=== PATIENT | female | born 1950 | race Caucasian/White ===

== ENCOUNTER → 2018-01-09 | Outpatient (CLI) | payer MEDICARE, MEDICAID | END | disposition home or self-care (01) | LOC: CFH 06:47 | PROVIDERS: ATTEND Internal Medicine Cardiovascular Disease | DX: Z01.810 Encounter for preprocedural cardiovascular examination (principal); I35.8 Other nonrheumatic aortic valve disorders; I10 Essential (primary) hypertension; Z87.891 Personal history of nicotine dependence | CPT/HCPCS: 93306 ==

== ENCOUNTER → 2018-01-23 | Outpatient (CLI) | payer MEDICARE, MEDICAID ==
[~2018-01-23] MED LIST: REGADENOSON 0.4 MG/5 ML SYRINGE ONE
== END | disposition home or self-care (01) ==
LOC: CFH 07:06
PROVIDERS: ATTEND Internal Medicine Cardiovascular Disease
DX: Z01.810 Encounter for preprocedural cardiovascular examination (principal); I10 Essential (primary) hypertension; R06.02 Shortness of breath
CPT/HCPCS: 78452; 93017; A9502; J2785

== ENCOUNTER 2018-04-17 13:10 | Outpatient (CLI) | payer OTHER, MEDICAID ==
[2018-04-17 14:43] LABS: BASOPHILS # (AUTO) 0.06 x10^3/uL (0-0.1); BASOPHILS % (AUTO) 1 % (0-1); EOSINOPHILS # (AUTO) 0.19 x10^3/uL (0-0.4); EOSINOPHILS % (AUTO) 2 % (1-7); LYMPHOCYTES # (AUTO) 3.23 x10^3/uL (1-3.4); LYMPHOCYTES % (AUTO) 33 % (22-44); MD NO; MEAN CORPUSCULAR HEMOGLOBIN 24.2 pg (27.0-34.8); MEAN CORPUSCULAR HGB CONC 31.2 g/dL (32.4-35.8); MEAN CORPUSCULAR VOLUME 77.6 fL (80-100); MEAN PLATELET VOLUME 8.8 fL (7.4-10.4); MONOCYTES # (AUTO) 0.87 x10^3/uL (0.2-0.8); MONOCYTES % (AUTO) 9 % (2-9); NEUTROPHILS # (AUTO) 5.46 x10^3/uL (1.8-6.8); NEUTROPHILS % (AUTO) 56 % (42-75); PLATELET COUNT 452 x10^3/uL (130-400); RED BLOOD COUNT 4.79 x10^6/uL (3.82-5.3); RED CELL DISTRIBUTION WIDTH 17.9 % (9.6-15.2)
[2018-04-17 14:53] LABS: ALANINE AMINOTRANSFERASE 18 U/L (12-78); ALBUMIN 3.9 g/dL (3.4-5.0); ANION GAP 7 mmol/L (5-15); CALCIUM 9.2 mg/dL (8.5-10.1); CHLORIDE 105 mmol/L (98-107); CREATININE 0.79 mg/dL (0.55-1.02)
[2018-04-17 14:55] LABS: ALKALINE PHOSPHATASE 96 U/L (45-117); BILIRUBIN,TOTAL 0.3 mg/dL (0.2-1.0); TOTAL PROTEIN 7.4 g/dL (6.4-8.2)
[2018-04-17] MEDS ORDERED: OXYB5TAB7 PO (15:07)
[2018-04-17] MEDS ORDERED: FLUT1AER INH (15:07)
[2018-04-17] MEDS ORDERED: ALEN70TA6 PO (15:07)
[2018-04-17] MEDS ORDERED: FURO20TA3 PO (15:07)
[2018-04-17] MEDS ORDERED: LOVA20TA2 PO (15:07)
[2018-04-17] MEDS ORDERED: BENZ-17 PO (15:07)
[2018-04-17] MEDS ORDERED: TRAZ-137 PO (15:07)
[2018-04-17] MEDS ORDERED: VARE1TAB21 PO (15:07)
[2018-04-17] MEDS ORDERED: BACL-19 PO (15:07)
[2018-04-17] MEDS ORDERED: NAPR-685 PO (15:07)
[2018-04-17] MEDS ORDERED: PARO10TA3 PO (15:07)
[2018-04-17] MEDS ORDERED: LISI-167 PO (15:07)
[2018-04-17] MEDS ORDERED: OMEP40CA6 PO (15:07)
[2018-04-17] MEDS ORDERED: AMLO10TA8 PO (15:07)
[2018-04-17 15:26] LABS: PROTHROMBIN TIME 10.6 Seconds (9.6-11.5)
== END 2018-04-17 23:59 | disposition home or self-care (01) ==
LOC: STAR 13:10 → MERGE 13:30 → STAR 23:59
PROVIDERS: ATTEND Orthopaedic Surgery
DX: Z01.818 Encounter for other preprocedural examination (principal); M16.11 Unilateral primary osteoarthritis, right hip
CPT/HCPCS: 36415; 80053; 83036; 85025; 85610; 85730; 87081; 93005

== ENCOUNTER 2018-05-01 19:22 | Inpatient (IN) | payer OTHER, MEDICAID ==
[~2018-05-01] VITALS: Ht 157.5 cm; Wt 78.2 kg
[~2018-05-01 19:22] MED LIST changes: +ALEN70TA6 PO; +AMLO10TA8 PO; +BACL-19 PO; +BENZ-17 PO; +FLUT1AER INH; +FURO20TA3 PO; +LISI-167 PO; +LOVA20TA2 PO; +MELO7.5T31 PO; +NAPR-685 PO; +OMEP40CA6 PO; +OXYB5TAB7 PO; +OXYC5CAP2 PO; +PARO10TA3 PO; -REGADENOSON 0.4 MG/5 ML SYRINGE ONE; +TRAM50TA2 PO; +TRAZ-137 PO; +VARE1TAB21 PO
[2018-05-01] MEDS ORDERED: ALEN70TA6 PO (19:59)
[2018-05-01] MEDS ORDERED: SODIUM CHLORIDE FLUSH 10ML SYR IVF ONE (20:00)
--- NOTE | 2018-05-01 20:14 | NUR ---
PT ON MONITOR AND DAUGHTER AT BEDSIDE PT REPORTS FEELING BETTER AND AWAITNG TEST RESULTS.
--- NOTE | 2018-05-01 20:34 | NUR ---
PT GIVEN WARM BLANKETS AND POSITIONED FOR COMFORT.
[2018-05-01 20:51] LABS: BASOPHILS # (AUTO) 0.07 x10^3/uL (0-0.1); BASOPHILS % (AUTO) 1 % (0-1); EOSINOPHILS # (AUTO) 0.06 x10^3/uL (0-0.4); EOSINOPHILS % (AUTO) 1 % (1-7); LYMPHOCYTES # (AUTO) 2.28 x10^3/uL (1-3.4); LYMPHOCYTES % (AUTO) 19 % (22-44); MD NO; MEAN CORPUSCULAR HEMOGLOBIN 24.6 pg (27.0-34.8); MEAN CORPUSCULAR VOLUME 76.7 fL (80-100); MEAN PLATELET VOLUME 8.6 fL (7.4-10.4); MONOCYTES # (AUTO) 0.81 x10^3/uL (0.2-0.8); MONOCYTES % (AUTO) 7 % (2-9); NEUTROPHILS # (AUTO) 8.55 x10^3/uL (1.8-6.8); NEUTROPHILS % (AUTO) 73 % (42-75); PLATELET COUNT 323 x10^3/uL (130-400); RED BLOOD COUNT 3.57 x10^6/uL (3.82-5.3)
--- NOTE | 2018-05-01 20:55 | NUR ---
CT PENDING LAB/CREATINE.
[2018-05-01 20:56] LABS: ALBUMIN 2.9 g/dL (3.4-5.0); ANION GAP 8 mmol/L (5-15); CALCIUM 8.8 mg/dL (8.5-10.1); CHLORIDE 103 mmol/L (98-107)
[2018-05-01 21:02] LABS: ALANINE AMINOTRANSFERASE 28 U/L (12-78); ALKALINE PHOSPHATASE 75 U/L (45-117); BILIRUBIN,TOTAL 0.4 mg/dL (0.2-1.0); TOTAL PROTEIN 6.8 g/dL (6.4-8.2); TROPONIN I < 0.015 ng/mL (0.000-0.045)
[2018-05-01 21:04] LABS: INTERNATIONAL NORMALIZED RATIO 0.92 (0.93-1.1); PROTHROMBIN TIME 9.7 Seconds (9.6-11.5)
--- NOTE | 2018-05-01 21:46 | NUR ---
PT TO CTA AND AWAITING RESULTS. PT RESTING IN BED ON MONITOR IN NO DISTRESS PRIOR TO SCAN.
--- NOTE | 2018-05-01 21:53 | NUR ---
REPORT FROM ED GRAHAM
[2018-05-01] MEDS ORDERED: OMNIPAQUE 350 MG/ML, 100ML BOTTLE ONE (21:56)
--- NOTE | 2018-05-01 22:04 | NUR ---
PT SITTING UP IN [facility]S NOTED. SPO2 LOW 90'S ON 4L BY NC. RR WNL; PT SPEAKING IN FULL SENTENCES; ALERT/AWAKE. PT/DAUGHTER UPDATED TO POC (RESULTS/DISPO) AND DEMONSTRATES UNDERSTANDING. BP/SPO2/ECG MONITORING IN PLACE. NSR ON MONITOR.
[2018-05-01 22:38] LABS: % IRON SATURATION 3 % (20-55); IRON LEVEL 13 mcg/dL (50-170); TOTAL IRON BINDING CAPACITY 375 mcg/dL (250-450)
--- NOTE | 2018-05-01 22:53 | NUR ---
REPORT TO ED MORRIS.
[2018-05-01] MEDS ORDERED: BISACODYL 10 MG SUPP PR PRN (23:30)
[2018-05-01] MEDS ORDERED: ONDANSETRON ODT 4 MG PO PRN (23:30)
[2018-05-01] MEDS ORDERED: POLYETHYLENE GLYCOL 17 GM PACKET PO PRN (23:30)
[2018-05-02] MEDS: NICOTINE 14MG/24 HR PATCH.TD24 TD SCH ×2 (00:20→23:36)
[2018-05-02] MEDS: HEPARIN 5,000 UNITS/ML, 1ML SQ SCH ×4 (00:20→22:45)
[2018-05-02] MEDS: LOVASTATIN 20 MG TABLET PO SCH ×2 (00:20→20:19)
[2018-05-02] MEDS: BENZONATATE 100 MG CAPSULE PO SCH ×4 (00:20→20:19)
[2018-05-02] MEDS: SODIUM CHLORIDE 0.9% 1,000 ML IV SCH ×2 (00:20→12:43)
[2018-05-02 00:44] VITALS: BP 124/65
[2018-05-02 00:45] LABS: MICROSCOPIC NOT IND
[2018-05-02 00:48] LABS: CULTURE INDICATED? NO
[2018-05-02 01:33] VITALS: BP 110/70
[2018-05-02] MEDS: VARENICLINE 1MG TABLET PO SCH ×3 (01:40→20:19)
[2018-05-02 05:41] LABS: BASOPHILS # (AUTO) 0.03 x10^3/uL (0-0.1); BASOPHILS % (AUTO) 0 % (0-1); EOSINOPHILS # (AUTO) 0.14 x10^3/uL (0-0.4); EOSINOPHILS % (AUTO) 1 % (1-7); LYMPHOCYTES # (AUTO) 2.98 x10^3/uL (1-3.4); LYMPHOCYTES % (AUTO) 29 % (22-44); MD NO; MEAN CORPUSCULAR HGB CONC 33.2 g/dL (32.4-35.8); MEAN CORPUSCULAR VOLUME 75.5 fL (80-100); MEAN PLATELET VOLUME 8.9 fL (7.4-10.4); MONOCYTES # (AUTO) 0.93 x10^3/uL (0.2-0.8); MONOCYTES % (AUTO) 9 % (2-9); NEUTROPHILS # (AUTO) 6.36 x10^3/uL (1.8-6.8); NEUTROPHILS % (AUTO) 61 % (42-75); PLATELET COUNT 306 x10^3/uL (130-400); RED BLOOD COUNT 3.36 x10^6/uL (3.82-5.3); RED CELL DISTRIBUTION WIDTH 18.1 % (9.6-15.2)
[2018-05-02 05:56] LABS: CHLORIDE 103 mmol/L (98-107)
[2018-05-02 06:04] LABS: ALANINE AMINOTRANSFERASE 29 U/L (12-78); ALBUMIN 2.6 g/dL (3.4-5.0); ALKALINE PHOSPHATASE 72 U/L (45-117); ANION GAP 7 mmol/L (5-15); BILIRUBIN,TOTAL 0.5 mg/dL (0.2-1.0); CALCIUM 8.3 mg/dL (8.5-10.1); CREATININE 0.57 mg/dL (0.55-1.02); TOTAL PROTEIN 6.3 g/dL (6.4-8.2)
[2018-05-02 07:27] VITALS: BP 114/68
[2018-05-02] MEDS: ACETAMINOPHEN 500 MG TABLET PO PRN ×2 (07:53→23:35)
[2018-05-02] MEDS: SENNA/DOCUSATE TABLET PO SCH (07:54)
[2018-05-02] MEDS: AMLODIPINE 10 MG TAB PO SCH (07:55)
[2018-05-02] MEDS: FUROSEMIDE 20 MG TABLET PO SCH (07:55)
[2018-05-02] MEDS: LISINOPRIL 10 MG TABLET PO SCH (07:55)
[2018-05-02] MEDS: OXYBUTYNIN CHLORIDE 5 MG TABLET PO SCH (07:55)
[2018-05-02] MEDS: OMEPRAZOLE 20 MG CAPSULE.DR PO SCH (07:56)
[2018-05-02] MEDS: MELOXICAM 15 MG TABLET PO SCH (07:56)
[2018-05-02] MEDS: PAROXETINE 10 MG TABLET PO SCH (07:57)
[2018-05-02] MEDS: BUDESONIDE 0.5 MG/2 ML INHA NPPB SCH ×2 (09:00→21:00)
[2018-05-02] MEDS ORDERED: FLUTICASONE/VILANTEROL 100-25MCG/INH INH SCH (09:00)
[2018-05-02] MEDS: ALBUTEROL SULFATE 2.5 MG/3 ML NPPB SCH ×3 (09:00→21:00)
[2018-05-02 13:15] VITALS: BP 117/73
[2018-05-02 19:23] VITALS: BP 130/78
[2018-05-03 01:27] VITALS: BP 124/74
[2018-05-03] MEDS: SODIUM CHLORIDE 0.9% 1,000 ML IV SCH (02:07)
[2018-05-03] MEDS: ALBUTEROL SULFATE 2.5 MG/3 ML NPPB SCH ×4 (03:00→21:00)
[2018-05-03] MEDS: ACETAMINOPHEN 500 MG TABLET PO PRN ×3 (05:43→21:27)
[2018-05-03 07:40] VITALS: BP 126/73
[2018-05-03] MEDS: SENNA/DOCUSATE TABLET PO SCH (08:49)
[2018-05-03] MEDS: HEPARIN 5,000 UNITS/ML, 1ML SQ SCH ×3 (08:51→23:42)
[2018-05-03] MEDS: LISINOPRIL 10 MG TABLET PO SCH (08:51)
[2018-05-03] MEDS: OXYBUTYNIN CHLORIDE 5 MG TABLET PO SCH (08:52)
[2018-05-03] MEDS: PAROXETINE 10 MG TABLET PO SCH (08:52)
[2018-05-03] MEDS: OMEPRAZOLE 20 MG CAPSULE.DR PO SCH (08:52)
[2018-05-03] MEDS: VARENICLINE 1MG TABLET PO SCH ×2 (08:52→21:23)
[2018-05-03] MEDS: AMLODIPINE 10 MG TAB PO SCH (08:52)
[2018-05-03] MEDS: MELOXICAM 15 MG TABLET PO SCH (08:53)
[2018-05-03] MEDS: FUROSEMIDE 20 MG TABLET PO SCH (08:53)
[2018-05-03] MEDS: BENZONATATE 100 MG CAPSULE PO SCH ×3 (08:54→21:23)
[2018-05-03] MEDS: BUDESONIDE 0.5 MG/2 ML INHA NPPB SCH ×2 (09:00→21:00)
[2018-05-03 16:22] VITALS: BP 131/77
[2018-05-03 19:53] VITALS: BP 124/71
[2018-05-03] MEDS: LOVASTATIN 20 MG TABLET PO SCH (21:23)
[2018-05-03] MEDS: NICOTINE 14MG/24 HR PATCH.TD24 TD SCH (23:23)
[2018-05-04 01:31] VITALS: BP 142/72
[2018-05-04] MEDS: ALBUTEROL SULFATE 2.5 MG/3 ML NPPB SCH ×4 (02:41→19:12)
[2018-05-04 07:10] VITALS: BP 139/69
[2018-05-04] MEDS: BUDESONIDE 0.5 MG/2 ML INHA NPPB SCH ×2 (08:32→19:12)
[2018-05-04] MEDS: HEPARIN 5,000 UNITS/ML, 1ML SQ SCH ×3 (08:34→22:57)
[2018-05-04] MEDS: MELOXICAM 15 MG TABLET PO SCH (08:36)
[2018-05-04] MEDS: SENNA/DOCUSATE TABLET PO SCH (08:36)
[2018-05-04] MEDS: OMEPRAZOLE 20 MG CAPSULE.DR PO SCH (08:37)
[2018-05-04] MEDS: BENZONATATE 100 MG CAPSULE PO SCH ×3 (08:37→20:59)
[2018-05-04] MEDS: VARENICLINE 1MG TABLET PO SCH ×2 (08:37→20:59)
[2018-05-04] MEDS: PAROXETINE 10 MG TABLET PO SCH (08:37)
[2018-05-04] MEDS: OXYBUTYNIN CHLORIDE 5 MG TABLET PO SCH (08:38)
[2018-05-04] MEDS: AMLODIPINE 10 MG TAB PO SCH (08:38)
[2018-05-04] MEDS: LISINOPRIL 10 MG TABLET PO SCH (08:38)
[2018-05-04] MEDS: FUROSEMIDE 20 MG TABLET PO SCH (08:38)
[2018-05-04] MEDS: ACETAMINOPHEN 500 MG TABLET PO PRN ×2 (08:52→15:30)
[2018-05-04 14:12] VITALS: BP 130/67
[2018-05-04 18:37] VITALS: BP 116/63
[2018-05-04] MEDS: LOVASTATIN 20 MG TABLET PO SCH (20:59)
[2018-05-04] MEDS ORDERED: CALCIUM CARBONATE 500 MG TAB.CHEW ONE (21:34)
[2018-05-04] MEDS ORDERED: CALCIUM CARBONATE 500 MG TAB.CHEW PO PRN (22:00)
[2018-05-04] MEDS: NICOTINE 14MG/24 HR PATCH.TD24 TD SCH (22:57)
[2018-05-05 01:43] VITALS: BP 112/67
[2018-05-05] MEDS: ALBUTEROL SULFATE 2.5 MG/3 ML NPPB SCH ×2 (02:12→06:57)
[2018-05-05 06:46] VITALS: BP 146/81
[2018-05-05] MEDS: BUDESONIDE 0.5 MG/2 ML INHA NPPB SCH (06:57)
[2018-05-05] MEDS: PAROXETINE 10 MG TABLET PO SCH (09:00)
[2018-05-05] MEDS: SENNA/DOCUSATE TABLET PO SCH (09:00)
[2018-05-05] MEDS: HEPARIN 5,000 UNITS/ML, 1ML SQ SCH (09:11)
[2018-05-05] MEDS: OMEPRAZOLE 20 MG CAPSULE.DR PO SCH (09:11)
[2018-05-05] MEDS: VARENICLINE 1MG TABLET PO SCH (09:12)
[2018-05-05] MEDS: BENZONATATE 100 MG CAPSULE PO SCH (09:13)
[2018-05-05] MEDS: FUROSEMIDE 20 MG TABLET PO SCH (09:13)
[2018-05-05] MEDS: MELOXICAM 15 MG TABLET PO SCH (09:13)
[2018-05-05] MEDS: AMLODIPINE 10 MG TAB PO SCH (09:13)
[2018-05-05] MEDS: OXYBUTYNIN CHLORIDE 5 MG TABLET PO SCH (09:13)
[2018-05-05] MEDS: LISINOPRIL 10 MG TABLET PO SCH (09:13)
[2018-05-05] MEDS: ACETAMINOPHEN 500 MG TABLET PO PRN (09:22)
[2018-05-05] MEDS ORDERED: ENOX40SY4 SQ (14:08)
[2018-05-05 14:19] VITALS: BP 137/80
[2018-05-08] MEDS ORDERED: ALENDRONATE 70 MG TABLET PO SCH (06:30)
== END 2018-05-05 15:14 | DRG 91 ==
LOC: ED 19:45 → EDIP 22:13 → 4EST 23:11
PROVIDERS: ADMIT Internal Medicine; ATTEND Internal Medicine
DX: G92 Toxic encephalopathy (principal); J96.01 Acute respiratory failure with hypoxia; E44.0 Moderate protein-calorie malnutrition; E87.1 Hypo-osmolality and hyponatremia; J84.9 Interstitial pulmonary disease, unspecified; D50.9 Iron deficiency anemia, unspecified; E78.5 Hyperlipidemia, unspecified; F17.210 Nicotine dependence, cigarettes, uncomplicated; I10 Essential (primary) hypertension; J44.9 Chronic obstructive pulmonary disease, unspecified; K44.9 Diaphragmatic hernia without obstruction or gangrene; M81.0 Age-related osteoporosis without current pathological fracture; R32 Unspecified urinary incontinence; Z96.641 Presence of right artificial hip joint; F32.9 Major depressive disorder, single episode, unspecified; Z87.81 Personal history of (healed) traumatic fracture; Z79.899 Other long term (current) drug therapy; Z90.49 Acquired absence of other specified parts of digestive tract; Z68.31 Body mass index [BMI] 31.0-31.9, adult; T40.2X5A Adverse effect of other opioids, initial encounter
CPT/HCPCS: 36415; 71045; 71275; 80053; 81003; 82607; 82728; 83540; 83550; 83735; 83880; 84466; 84484; 85025; 85610; 86850; 86900; 93005; 94640; 99291; G0378; J1644; J7613; J7626; Q9967; J7030

== ENCOUNTER 2019-06-10 01:24 | Inpatient (IN) | payer MEDICARE, MEDICAID ==
[~2019-06-10] VITALS: Ht 152.4 cm; Wt 80.5 kg
[~2019-06-10 01:24] MED LIST changes: +ENOX40SY4 SQ; +OMEP40CA42 PO; -OMEP40CA6 PO; +OXYB5TAB10 PO; -OXYB5TAB7 PO; -TRAZ-137 PO; +TRAZ-175 PO
--- NOTE | 2019-06-10 01:27 | NUR ---
THIS IS A 69Y F BIB EMS FROM HOME. PT AWOKE ABOUT AN HOUR AND A HALF AGO FEELING SHORT OF BREATH AND WEAK. PER PT DAUGHTER PT WAS UNABLE TO LIFT WATER TO HER MOUTH AND ALMOST FELL OVER. PER EMS INITIAL RA SAT WAS IN THE 70'S. PT ARRIVED ON 4L NC SAT MID 90'S. PT CONNECTED TO ALL MONITORING VSS, [place]
--- NOTE | 2019-06-10 01:56 | NUR ---
[facility] [phone]
[2019-06-10] MEDS ORDERED: ONDANSETRON 2MG/ML, 2ML ONE (02:10)
--- NOTE | 2019-06-10 02:13 | NUR ---
PT VOMITING, PT MEDICATED FOR NAUSEA/ VOMITING PER DR WEBB
[2019-06-10 02:24] LABS: ALANINE AMINOTRANSFERASE 12 U/L (12-78); ALBUMIN 3.2 g/dL (3.4-5.0); ANION GAP 8 mmol/L (5-15); CALCIUM 10.2 mg/dL (8.5-10.1); CHLORIDE 102 mmol/L (98-107); CREATININE 0.91 mg/dL (0.55-1.02); MEAN CORPUSCULAR HEMOGLOBIN 19.4 pg (27.0-34.8); MEAN CORPUSCULAR HGB CONC 28.9 g/dL (32.4-35.8); MEAN CORPUSCULAR VOLUME 67.1 fL (80-100); MEAN PLATELET VOLUME 8.2 fL (7.4-10.4); PLATELET COUNT 486 x10^3/uL (130-400); RED BLOOD COUNT 3.79 x10^6/uL (3.82-5.3); RED CELL DISTRIBUTION WIDTH 20.1 % (9.6-15.2)
[2019-06-10 02:29] LABS: ALKALINE PHOSPHATASE 64 U/L (45-117); BILIRUBIN,TOTAL 0.2 mg/dL (0.2-1.0); TOTAL PROTEIN 6.5 g/dL (6.4-8.2)
[2019-06-10] MEDS ORDERED: ONDANSETRON 2MG/ML, 2ML IVPush ONE (02:30)
--- NOTE | 2019-06-10 02:30 | NUR ---
PT DAUGHTER UPDATED ON PT STATUS AND THAT SHE WILL BE ADMITTED. PT DAUGHTER ALSO EDUCATED ON NO VISITOR POLICY. DAUGHTER STS SHE WILL CALL TO KEEP IN TOUCH DURING THIS TIME.
[2019-06-10 02:42] LABS: ANISOCYTOSIS 2+; BASOPHILS % (AUTO) 0 % (0-1); EOSINOPHILS # (AUTO) 0.28 x10^3/uL (0-0.4); EOSINOPHILS % (AUTO) 3 % (1-7); HYPOCHROMIA 1+; LYMPHOCYTES # (AUTO) 2.56 x10^3/uL (1-3.4); LYMPHOCYTES % (AUTO) 27 % (22-44); MD MORPH REVIEW ONLY; MICROCYTOSIS 2+; MONOCYTES # (AUTO) 0.76 x10^3/uL (0.2-0.8); MONOCYTES % (AUTO) 8 % (2-9); NEUTROPHILS # (AUTO) 6.02 x10^3/uL (1.8-6.8); NEUTROPHILS % (AUTO) 63 % (42-75); OVALOCYTES 1+; POLYCHROMASIA 1+
[2019-06-10 02:44] LABS: <PLATELET ESTIMATE> INCREASED; <PLT MORPHOLOGY> NORMAL PLT MORPH
--- NOTE | 2019-06-10 02:52 | NUR ---
BREAK RN: ALL TESTS RESULTED. PT IS UP FOR RECHECK AT THIS TIME.
[2019-06-10] MEDS ORDERED: chantix BC (03:12)
[2019-06-10] MEDS ORDERED: CEFTRIAXONE PMX 1GM/50ML 50 ML IVPB ONE (03:30)
[2019-06-10] MEDS ORDERED: AZITHROMYCIN 500 MG in SODIUM CHLORIDE 0.9% 250 ML IV ONE (03:30)
[2019-06-10] MEDS ORDERED: CEFTRIAXONE PMX 1GM/50ML 50 ML ONE (03:49)
--- NOTE | 2019-06-10 03:58 | NUR ---
COVID SWAB OBTAINED, PT RESTING ON GURNEY WATCHING TV, IV ABX STARTED, CULTURES DRAWN X2 PRIOR TO START.
[2019-06-10] MEDS ORDERED: hydrALAzine 20 MG/ML, 1ML IVPush PRN (04:00)
[2019-06-10] MEDS ORDERED: ONDANSETRON 2MG/ML, 2ML IVPush PRN (04:00)
--- NOTE | 2019-06-10 04:16 | NUR ---
PT PROVIDED WITH WATER REQUESTED.PT TOLERATING PO FLUIDS WELL.
[2019-06-10] MEDS ORDERED: ALENDRONATE 70 MG TABLET PO SCH (04:30)
--- NOTE | 2019-06-10 04:57 | NUR ---
ZITHROMAX STARTED, PT RESTING ON ZITA BENDER
[2019-06-10] MEDS ORDERED: hydrALAzine 20 MG/ML, 1ML ONE (06:22)
--- NOTE | 2019-06-10 06:28 | NUR ---
PT MEDICATED PER MAR FOR HYPERTENSION, ABX STILL INFUSING AT THIS TIME. PT STS SHE DOES NOT WANT HER FOSAMAX RIGHT NOW SHE DOES NOT THINK SHE WILL STAY AWAKE LONG ENOUGH.
--- NOTE | 2019-06-10 08:55 | NUR ---
assisted pt to bedside commode. clean linens and underwear w pad provided. meal tray delivered, and appreciated. phlebotomy is at the bedside for blood sampling.
[2019-06-10 09:19] LABS: TROPONIN I 0.016 ng/mL (0.000-0.045)
[2019-06-10] MEDS ORDERED: POTASSIUM CHLORIDE 20 MEQ TAB.ER.PRT ONE ×2 (09:56→17:05)
[2019-06-10] MEDS: POTASSIUM CHLORIDE 20 MEQ TAB.ER.PRT PO SCH ×2 (09:58→17:10)
--- NOTE | 2019-06-10 10:27 | NUR ---
PTS GRANDSON IS IN THE AND IS GOING TO COME HOME ON EMERGENCY LEAVE TO VISIT HER BECAUSE SHE IS IN THE HOSPITAL. THE [facility] WILL PAY FOR HIS FLIGHT HOME. PT SAID IT WAS OK THAT WE RELEASE INFORMATION TO THE [facility] [place] IN REGARDS TO HER SITUATION SO THAT THEY COULD FLY HER GRANDSON TO [place]
--- NOTE | 2019-06-10 11:07 | NUR ---
CARDIAC MONITORING LEADS AND NASAL CANNULA FOUND IN LINEN OF BED WITH PT. DISCUSSED POC WITH PT. PT REFUSES CARDIAC MONITORING AT THIS TIME NASAL CANNULA PLACED BACK ON PT B/P, AND SPO2 MONITORING INTACT. NO ACUTE S/S OF DISTRESS. NO CHANGE IN BASELINE MENTATION AT THIS TIME.
--- NOTE | 2019-06-10 11:53 | NUR ---
LUNCH RN: CALL PLACED TO PHARM FOR MEDS, SPOKE WITH TECH STS WILL SEND MEDS NOW.
[2019-06-10] MEDS: OXYBUTYNIN CHLORIDE 5 MG TABLET PO SCH (12:03)
[2019-06-10] MEDS: PAROXETINE 10 MG TABLET PO SCH (12:04)
[2019-06-10] MEDS: BACLOFEN 10 MG TABLET PO SCH ×3 (12:04→22:02)
[2019-06-10] MEDS ORDERED: BRIO INH (12:07)
[2019-06-10] MEDS ORDERED: VENTOLIN (12:07)
--- NOTE | 2019-06-10 12:16 | NUR ---
LUNCH RN: PT MEDICATED PER MAY. VSS AT THIS TIME. PT REQUESTING BREATHING TREATMENT, STS TAKEN 2 INHALERS NORMALLY (BRIO AND VENTOLIN). HOSPITALIST TO BE UPDATED.
--- NOTE | 2019-06-10 13:48 | NUR ---
PROVIDED WITH LUNCH TRAY AND EXTRA CRACKERS PER REQUEST. DENIES FURTHER NEEDS AT THIS TIME
[2019-06-10] MEDS ORDERED: MAGNESIUM SULFATE PMX 2GM/50ML 50 ML IV ONE (14:00)
[2019-06-10] MEDS ORDERED: MAGNESIUM SULFATE PMX 2GM/50ML 50 ML ONE (14:11)
[2019-06-10] MEDS: ALBUTEROL HFA 90 MCG/SPRAY INH PRN (14:49)
[2019-06-10] MEDS ORDERED: ENOXAPARIN 40 MG/0.4 ML SQ SCH (18:00)
--- NOTE | 2019-06-10 19:19 | NUR ---
REPORT RECIEVED FROM ISABEL WARD, ASSUMING CARE OF PT. PT CURRENTLY EATING DIET TRAY IN ROOM. NO ASSISTANCE IS NEEDED. PT CONTINUES TO TAKE OFF O2, EDUCATED ON ITS IMPORTANCE AND REPLACED O2 ON PT. RA SATS 82-88%. WILL CONTINUE TO MONITOR
--- NOTE | 2019-06-10 20:51 | NUR ---
PT RESTING IN BED AT THIS TIME, NADN. VSS. SLEEPING INTERMITTENTLY. WILL CONTINUE TO MONITOR
--- NOTE | 2019-06-10 20:59 | NUR ---
LAB AT BEDSIDE FOR H/H DRAW
--- NOTE | 2019-06-10 21:45 | NUR ---
DR NEFF UPDATED ON PT H/H, VERBAL ORDERS RECEIVED FOR NPO AND TYPE AND CROSS TO BE ORDERED. MEDS ALSO ORDERED FROM PHARM.
[2019-06-10] MEDS: LOVASTATIN 20 MG TABLET PO SCH (22:02)
--- NOTE | 2019-06-10 22:08 | NUR ---
Report received from Jemima Sheehan RN. This RN to assume care.
[2019-06-10 23:21] VITALS: BP 168/84
--- NOTE | 2019-06-10 23:28 | NUR ---
Received blood from blood bank; verified and began infusion.
[2019-06-10 23:44] VITALS: BP 159/80
[2019-06-11] VITALS: BP 139/86
--- NOTE | 2019-06-11 00:40 | NUR ---
task RN: pt AC IV leaking blood products. a second IV started on the left forearm. blood products infusing through new IV. pt tolerating blood well.
[2019-06-11 00:41] VITALS: BP 194/99
[2019-06-11 01:11] VITALS: BP 195/86
--- NOTE | 2019-06-11 01:20 | NUR ---
Blood transfusion complete; patient denies any complaints. No reactions noted.
[2019-06-11 04:38] LABS: MEAN CORPUSCULAR HEMOGLOBIN 21.3 pg (27.0-34.8); MEAN CORPUSCULAR HGB CONC 30.7 g/dL (32.4-35.8); MEAN CORPUSCULAR VOLUME 69.5 fL (80-100); MEAN PLATELET VOLUME 7.8 fL (7.4-10.4); PLATELET COUNT 436 x10^3/uL (130-400); RED BLOOD COUNT 3.84 x10^6/uL (3.82-5.3); RED CELL DISTRIBUTION WIDTH 23.3 % (9.6-15.2)
[2019-06-11 04:52] LABS: % IRON SATURATION 11 % (20-55); ALANINE AMINOTRANSFERASE 13 U/L (12-78); ALBUMIN 3.1 g/dL (3.4-5.0); ANION GAP 4 mmol/L (5-15); CALCIUM 8.7 mg/dL (8.5-10.1); CHLORIDE 107 mmol/L (98-107); CREATININE 0.63 mg/dL (0.55-1.02); IRON LEVEL 49 mcg/dL (50-170); TOTAL IRON BINDING CAPACITY 431 mcg/dL (250-450)
[2019-06-11 04:55] LABS: ALKALINE PHOSPHATASE 57 U/L (45-117); BILIRUBIN,TOTAL 0.6 mg/dL (0.2-1.0); TOTAL PROTEIN 6.5 g/dL (6.4-8.2)
[2019-06-11 05:53] LABS: BASOPHILS # (AUTO) 0.03 x10^3/uL (0-0.1); BASOPHILS % (AUTO) 0 % (0-1); EOSINOPHILS # (AUTO) 0.19 x10^3/uL (0-0.4); EOSINOPHILS % (AUTO) 2 % (1-7); LYMPHOCYTES % (AUTO) 32 % (22-44); MD SCAN; MONOCYTES % (AUTO) 9 % (2-9); NEUTROPHILS # (AUTO) 4.85 x10^3/uL (1.8-6.8); NEUTROPHILS % (AUTO) 56 % (42-75)
[2019-06-11] MEDS ORDERED: OMEPRAZOLE 20 MG CAPSULE.DR ONE (06:08)
[2019-06-11] MEDS: OMEPRAZOLE 20 MG CAPSULE.DR PO SCH ×2 (06:13→17:03)
--- NOTE | 2019-06-11 07:22 | NUR ---
pt sitting in [facility]. pt's aox4. resps even and unlabored. all monitors in place. call light within reach. requesting some new underwear and pads.
--- NOTE | 2019-06-11 07:30 | NUR ---
new underwears and pads provided at this time.
--- NOTE | 2019-06-11 07:40 | NUR ---
diet tray ordered at this time.
[2019-06-11] MEDS ORDERED: CEFTRIAXONE PMX 1GM/50ML 50 ML ONE (07:54)
[2019-06-11] MEDS: CEFTRIAXONE PMX 1GM/50ML 50 ML IV SCH (07:57)
[2019-06-11] MEDS: AZITHROMYCIN 500 MG in SODIUM CHLORIDE 0.9% 250 ML IV SCH (08:00)
--- NOTE | 2019-06-11 08:00 | NUR ---
abx infusing at this time. pt tolerated well.
[2019-06-11] MEDS ORDERED: LABETALOL 5MG/ML, 20ML IVPush PRN (08:30)
--- NOTE | 2019-06-11 08:38 | NUR ---
MEDICATIONS ORDERED FROM PHARMACY AT THIS TIME.
--- NOTE | 2019-06-11 08:46 | NUR ---
meal tray provided at this time.
--- NOTE | 2019-06-11 08:49 | NUR ---
zithromaz infusing at this time. pt tolerated well. pt's aox4. resps even and unlabored.
[2019-06-11] MEDS ORDERED: AMLODIPINE 5 MG TABLET PO SCH (09:00)
--- NOTE | 2019-06-11 09:26 | NUR ---
one more medication ordered from pharmacy at this time.
[2019-06-11] MEDS: OXYBUTYNIN CHLORIDE 5 MG TABLET PO SCH (09:38)
[2019-06-11] MEDS: AMLODIPINE 5 MG TABLET PO SCH (09:38)
[2019-06-11] MEDS: PAROXETINE 10 MG TABLET PO SCH (09:38)
[2019-06-11] MEDS: IRON SUCROSE COMPLEX 100MG/5ML IV SCH (09:38)
[2019-06-11] MEDS: FLUTICASONE/VILANTEROL 100-25MCG/INH INH SCH (09:39)
--- NOTE | 2019-06-11 09:42 | NUR ---
pt medicated per emar. pt tolerated well.
[2019-06-11] MEDS: BACLOFEN 10 MG TABLET PO SCH ×3 (10:21→20:42)
--- NOTE | 2019-06-11 10:24 | NUR ---
pt medicated per emar. pt tolerated well. pt's aox4. resps even and unlabored. abx still infusing at this time.
--- NOTE | 2019-06-11 10:30 | NUR ---
PT DAUGHTER UPDATED ON PT STATUS AT THIS TIME.
--- NOTE | 2019-06-11 11:01 | NUR ---
MEAL TRAY ORDERED AT THIS TIME.
--- NOTE | 2019-06-11 11:54 | NUR ---
hospital bed ordered at this time.
--- NOTE | 2019-06-11 12:14 | NUR ---
Pt placed on hospital bed. Pt refused vital check. Pt given silverware that was on tray. Pt on patient monitor.
--- NOTE | 2019-06-11 13:05 | NUR ---
RECEIVED REPORT FROM SANTOS. PT LAYING ON HOSPITAL BED WITH EYES CLOSED, NAD WITH EQUAL CHEST RISE/FALL, NO NEEDS AT THIS TIME, CALL LIGHT WITHIN REACH.
--- NOTE | 2019-06-11 14:01 | NUR ---
PT UPRIGHT ON HOSPITAL BED WATCHING TV, RESPONDS TO STAFF, NAD, COMFORT MEASURES PROVIDED, CALL LIGHT WITHIN REACH.
--- NOTE | 2019-06-11 15:05 | NUR ---
PT REMAINS UPRIGHT ON HOSPITAL BED WATCHING TV, RESPONDS TO STAFF, NAD, COMFORT MEASURES PROVIDED, CALL LIGHT WITHIN REACH.
--- NOTE | 2019-06-11 15:35 | NUR ---
Pt to be admitted to [facility], room 495. Report called to Lia.
[2019-06-11 16:55] VITALS: BP 139/70
[2019-06-11] MEDS: ACETAMINOPHEN 325 MG TABLET PO PRN (17:42)
[2019-06-11 18:54] VITALS: BP 151/74
[2019-06-11] MEDS: LOVASTATIN 20 MG TABLET PO SCH (20:42)
[2019-06-12 01:05] VITALS: BP 162/82
[2019-06-12] MEDS: ACETAMINOPHEN 325 MG TABLET PO PRN ×3 (01:08→16:08)
[2019-06-12] MEDS: OMEPRAZOLE 20 MG CAPSULE.DR PO SCH ×2 (05:48→16:11)
[2019-06-12 06:08] VITALS: BP 156/83
[2019-06-12] MEDS: FLUTICASONE/VILANTEROL 100-25MCG/INH INH SCH (09:00)
[2019-06-12] MEDS ORDERED: MAGNESIUM HYDROXIDE 8%, 30ML UDC ONE (09:03)
[2019-06-12] MEDS: CEFTRIAXONE PMX 1GM/50ML 50 ML IV SCH (09:16)
[2019-06-12] MEDS: IRON SUCROSE COMPLEX 100MG/5ML IV SCH (09:17)
[2019-06-12] MEDS: PAROXETINE 10 MG TABLET PO SCH (09:22)
[2019-06-12] MEDS: AMLODIPINE 5 MG TABLET PO SCH (09:22)
[2019-06-12] MEDS: MAGNESIUM HYDROXIDE 8%, 30ML UDC PO SCH ×2 (09:22→20:37)
[2019-06-12] MEDS: BACLOFEN 10 MG TABLET PO SCH ×3 (09:22→20:36)
[2019-06-12] MEDS: OXYBUTYNIN CHLORIDE 5 MG TABLET PO SCH (09:22)
[2019-06-12] MEDS: AZITHROMYCIN 500 MG in SODIUM CHLORIDE 0.9% 250 ML IV SCH (10:09)
[2019-06-12 12:03] VITALS: BP 138/77
[2019-06-12] MEDS: ALBUTEROL HFA 90 MCG/SPRAY INH PRN (16:10)
[2019-06-12 19:52] VITALS: BP 157/68
[2019-06-12] MEDS: LOVASTATIN 20 MG TABLET PO SCH (20:37)
[2019-06-13 02:13] VITALS: BP 158/82
[2019-06-13] MEDS: OMEPRAZOLE 20 MG CAPSULE.DR PO SCH ×2 (04:51→16:34)
[2019-06-13] MEDS: MAGNESIUM HYDROXIDE 8%, 30ML UDC PO SCH ×3 (09:00→20:45)
[2019-06-13 09:40] VITALS: BP 178/79
[2019-06-13] MEDS: CEFTRIAXONE PMX 1GM/50ML 50 ML IV SCH (10:30)
[2019-06-13] MEDS: AZITHROMYCIN 500 MG in SODIUM CHLORIDE 0.9% 250 ML IV SCH (10:30)
[2019-06-13] MEDS: OXYBUTYNIN CHLORIDE 5 MG TABLET PO SCH (10:30)
[2019-06-13] MEDS: PAROXETINE 10 MG TABLET PO SCH (10:30)
[2019-06-13] MEDS: IRON SUCROSE COMPLEX 100MG/5ML IV SCH (10:31)
[2019-06-13] MEDS: FUROSEMIDE 20 MG TABLET PO SCH (10:31)
[2019-06-13] MEDS: BACLOFEN 10 MG TABLET PO SCH ×3 (10:31→20:08)
[2019-06-13] MEDS: AMLODIPINE 5 MG TABLET PO SCH (10:31)
[2019-06-13 13:23] VITALS: BP 162/68
[2019-06-13] MEDS: FLUTICASONE/VILANTEROL 100-25MCG/INH INH SCH (16:34)
[2019-06-13 20:08] VITALS: BP 150/66
[2019-06-13] MEDS: LOVASTATIN 20 MG TABLET PO SCH (20:08)
[2019-06-14 02:05] VITALS: BP 154/65
[2019-06-14] MEDS: OMEPRAZOLE 20 MG CAPSULE.DR PO SCH (05:03)
[2019-06-14 07:43] LABS: ANION GAP 8 mmol/L (5-15); CALCIUM 8.7 mg/dL (8.5-10.1); CHLORIDE 107 mmol/L (98-107); CREATININE 0.58 mg/dL (0.55-1.02)
[2019-06-14] MEDS: CEFTRIAXONE PMX 1GM/50ML 50 ML IV SCH (08:51)
[2019-06-14] MEDS: MAGNESIUM HYDROXIDE 8%, 30ML UDC PO SCH (08:51)
[2019-06-14] MEDS: AZITHROMYCIN 500 MG in SODIUM CHLORIDE 0.9% 250 ML IV SCH (08:51)
[2019-06-14] MEDS: IRON SUCROSE COMPLEX 100MG/5ML IV SCH (08:51)
[2019-06-14] MEDS: FUROSEMIDE 20 MG TABLET PO SCH (08:52)
[2019-06-14] MEDS: AMLODIPINE 5 MG TABLET PO SCH (08:52)
[2019-06-14] MEDS: BACLOFEN 10 MG TABLET PO SCH (08:52)
[2019-06-14] MEDS: OXYBUTYNIN CHLORIDE 5 MG TABLET PO SCH (08:52)
[2019-06-14] MEDS: PAROXETINE 10 MG TABLET PO SCH (08:52)
[2019-06-14 09:00] VITALS: BP 147/64
[2019-06-14] MEDS: FLUTICASONE/VILANTEROL 100-25MCG/INH INH SCH (09:00)
[2019-06-14] MEDS ORDERED: LISINOPRIL 10 MG TABLET PO SCH (09:00)
[2019-06-14 10:30] VITALS: BP 145/63
[2019-06-14] MEDS ORDERED: AMLO-150 PO (12:01)
[2019-06-14] MEDS ORDERED: AZIT500T10 PO (12:01)
[2019-06-14] MEDS ORDERED: LISI-167 PO (12:01)
[2019-06-14] MEDS ORDERED: CEFD300C37 PO (12:01)
[2019-06-14] MEDS ORDERED: FERR324T5 PO (12:01)
== END 2019-06-14 14:00 | disposition home health service (06) | DRG 193 ==
LOC: ED 01:40 → EDIP 03:37 → 4EST 06-11 16:56 → 3WST 06-12 22:49
PROVIDERS: ADMIT Internal Medicine; ATTEND Hospitalist
DX: J15.9 Unspecified bacterial pneumonia (principal); J96.01 Acute respiratory failure with hypoxia; J44.1 Chronic obstructive pulmonary disease with (acute) exacerbation; J44.0 Chronic obstructive pulmonary disease with (acute) lower respiratory infection; I16.0 Hypertensive urgency; E87.6 Hypokalemia; E83.52 Hypercalcemia; E83.42 Hypomagnesemia; D50.9 Iron deficiency anemia, unspecified; E78.5 Hyperlipidemia, unspecified; F17.210 Nicotine dependence, cigarettes, uncomplicated; I10 Essential (primary) hypertension; M81.0 Age-related osteoporosis without current pathological fracture; Z79.83 Long term (current) use of bisphosphonates; Z79.899 Other long term (current) drug therapy; Z80.42 Family history of malignant neoplasm of prostate; Z91.14 Patient's other noncompliance with medication regimen; K21.9 Gastro-esophageal reflux disease without esophagitis; Z20.828 Contact with and (suspected) exposure to other viral communicable diseases
CPT/HCPCS: 36415; 36430; 71045; 80048; 80053; 83540; 83550; 83605; 83735; 83880; 84145; 84484; 85014; 85018; 85025; 86850; 86900; 86923; 87040; 93005; 93306; 93356; 96374; 96375; 96376; G0378; J0456; J0696; J1756; J2405; J0360; J3475; J7050; P9016

== ENCOUNTER 2020-07-12 19:42 | Inpatient (IN) | payer MEDICARE, MEDICAID ==
[~2020-07-12] VITALS: Ht 157.5 cm; Wt 82.0 kg
[~2020-07-12 19:42] MED LIST changes: -ALEN70TA6 PO; +ALEN70TA77 PO; +AMLO-150 PO; +AMLO-211 PO; -AMLO10TA8 PO; +AZIT500T10 PO; +BRIO INH; +CEFD300C37 PO; +FERR324T5 PO; +VENTOLIN; +chantix BC
--- NOTE | 2020-07-12 20:01 | NUR ---
Pt on panel monitor. Daughter at bedside X-Ray completed. Awaiting labs
[2020-07-12 20:24] LABS: BASOPHILS % (AUTO) 1 % (0-1); EOSINOPHILS % (AUTO) 1 % (1-7); LYMPHOCYTES % (AUTO) 33 % (22-44); MD NO; MEAN CORPUSCULAR HEMOGLOBIN 32.3 pg (27.0-34.8); MEAN CORPUSCULAR HGB CONC 33.8 g/dL (32.4-35.8); MEAN PLATELET VOLUME 8.6 fL (7.4-10.4); MONOCYTES % (AUTO) 8 % (2-9); NEUTROPHILS % (AUTO) 57 % (42-75); PLATELET COUNT 282 x10^3/uL (130-400); RED CELL DISTRIBUTION WIDTH 14.3 % (9.6-15.2)
--- NOTE | 2020-07-12 20:25 | NUR ---
Daughter states gloria garcias been progressively confused for severaldays and has gotten worse after she took the patients medication away yesterday. The patient is normally in charge of her own medications. The patient normally walks and talks and can partially care for herself.
[2020-07-12 20:35] LABS: ALANINE AMINOTRANSFERASE 37 U/L (12-78); ALBUMIN 3.6 g/dL (3.4-5.0); ANION GAP 5 mmol/L (5-15); CALCIUM 9.3 mg/dL (8.5-10.1); CHLORIDE 110 mmol/L (98-107); CREATININE 0.55 mg/dL (0.55-1.02)
[2020-07-12 20:40] LABS: ALKALINE PHOSPHATASE 85 U/L (45-117); BILIRUBIN,TOTAL 0.4 mg/dL (0.2-1.0); TOTAL PROTEIN 7.3 g/dL (6.4-8.2); TROPONIN I < 0.015 ng/mL (0.000-0.045)
--- NOTE | 2020-07-12 21:26 | NUR ---
Spoke with daughter Gloria Vences whom called here from [place]. She states patient was halluicating 2 years ago, 05/2018 when she overdosed on her baclofen at that time. ERP made aware.
--- NOTE | 2020-07-12 21:28 | NUR ---
Gloria Vences Daughter: [phone]
--- NOTE | 2020-07-12 21:59 | NUR ---
Report to Jennifer Mcdonald RN.
--- NOTE | 2020-07-12 22:13 | NUR ---
DAUGHTER NOW AT BEDSIDE. PT CONVERSING, SLIGHTLY CONFUSED BUT PLEASENT. PT TO CT AT THIS TIME.
[2020-07-12 22:18] LABS: MICROSCOPIC INDICATED
[2020-07-12 22:23] LABS: AMPHETAMINE SCREEN, URINE Negative (Negative); BARBITURATE SCREEN, URINE Negative (Negative); BENZODIAZEPINE SCREEN, URINE Negative (Negative); CANNABINOID SCREEN, URINE Negative (Negative); COCAINE SCREEN, URINE Negative (Negative); METHADONE SCREEN, URINE Negative (Negative); OPIATE SCREEN, URINE Negative (Negative)
[2020-07-12] MEDS ORDERED: CEFTRIAXONE 1 GM in DEXTROSE 5% 50 ML IVPB ONE (22:30)
--- NOTE | 2020-07-12 23:45 | NUR ---
REPORT ED THORNTON
--- NOTE | 2020-07-12 23:49 | NUR ---
ABX STARTED AFTER BLOOD CULTURES DRAWN X 2
[2020-07-13] MEDS ORDERED: ACETAMINOPHEN 325 MG TABLET PO PRN
[2020-07-13] MEDS ORDERED: DOCUSATE 100 MG CAPSULE PO PRN
[2020-07-13] MEDS ORDERED: MELATONIN 5 MG TABLET PO PRN
[2020-07-13] MEDS ORDERED: ENALAPRILAT 1.25 MG/ML, 2ML IVPush PRN
[2020-07-13] MEDS ORDERED: LIDODERM 5% PATCH TD PRN
[2020-07-13 00:13] VITALS: BP 156/62
[2020-07-13] MEDS ORDERED: CEFTRIAXONE 1,000 MG in DEXTROSE 5% 50 ML IVPB ONE (00:30)
[2020-07-13] MEDS: ENOXAPARIN 40 MG/0.4 ML SQ SCH ×2 (00:59→23:44)
[2020-07-13 01:38] VITALS: BP 155/71
[2020-07-13] MEDS ORDERED: LOSA50TA14 PO (02:12)
[2020-07-13] MEDS ORDERED: ACET500T76 PO (02:58)
[2020-07-13] MEDS ORDERED: NAPR-856 PO (03:06)
[2020-07-13] MEDS ORDERED: BENZ-17 PO (03:06)
[2020-07-13] MEDS ORDERED: OMEP20CA20 PO (03:06)
[2020-07-13] MEDS ORDERED: TRAZ-175 PO (03:13)
[2020-07-13 03:33] VITALS: BP 157/73
[2020-07-13] MEDS ORDERED: CALCIUM CARBONATE 500 MG TAB.CHEW PO ONE (04:30)
[2020-07-13 05:54] LABS: ANION GAP 7 mmol/L (5-15); CALCIUM 9.1 mg/dL (8.5-10.1); CHLORIDE 104 mmol/L (98-107)
[2020-07-13 05:56] LABS: BASOPHILS % (AUTO) 1 % (0-1); EOSINOPHILS % (AUTO) 0 % (1-7); LYMPHOCYTES % (AUTO) 17 % (22-44); MEAN CORPUSCULAR HEMOGLOBIN 32.2 pg (27.0-34.8); MEAN CORPUSCULAR HGB CONC 33.6 g/dL (32.4-35.8); MEAN PLATELET VOLUME 9.1 fL (7.4-10.4); MONOCYTES % (AUTO) 6 % (2-9); NEUTROPHILS % (AUTO) 76 % (42-75); PLATELET COUNT 286 x10^3/uL (130-400); RED BLOOD COUNT 4.72 x10^6/uL (3.82-5.3); RED CELL DISTRIBUTION WIDTH 14.2 % (9.6-15.2)
[2020-07-13 05:57] LABS: MD NO
[2020-07-13 06:05] LABS: CREATININE 0.58 mg/dL (0.55-1.02)
[2020-07-13] MEDS ORDERED: ALENDRONATE 70 MG TABLET PO SCH (06:30)
[2020-07-13 06:59] VITALS: BP 153/71
[2020-07-13] MEDS ORDERED: FLUTICASONE/VILANTEROL 100-25MCG/INH INH SCH (09:00)
[2020-07-13] MEDS: BUDESONIDE 0.5 MG/2 ML INHA INH SCH ×2 (09:30→21:00)
[2020-07-13] MEDS: OXYBUTYNIN CHLORIDE 5 MG TABLET PO SCH (09:50)
[2020-07-13] MEDS: FERROUS SULFATE 325 MG TABLET PO SCH ×2 (09:50→22:33)
[2020-07-13] MEDS: AMLODIPINE 10 MG TAB PO SCH (09:50)
[2020-07-13] MEDS: FUROSEMIDE 20 MG TABLET PO SCH (09:50)
[2020-07-13] MEDS: PAROXETINE 10 MG TABLET PO SCH (09:50)
[2020-07-13] MEDS: LOSARTAN 50MG TABLET PO SCH (09:51)
[2020-07-13] MEDS ORDERED: GADOTERATE 10 MMOL/20ML SYR ONE (11:25)
[2020-07-13 15:16] VITALS: BP 109/67
[2020-07-13] MEDS: BACLOFEN 10 MG TABLET PO SCH ×2 (16:00→21:00)
[2020-07-13 20:01] VITALS: BP 161/85
[2020-07-13] MEDS: LOVASTATIN 20 MG TABLET PO SCH (22:33)
[2020-07-13] MEDS: CEFTRIAXONE 2 GM in DEXTROSE 5% 50 ML IVPB SCH (22:34)
[2020-07-13] MEDS: CALCIUM CARBONATE 500 MG TAB.CHEW PO SCH (22:34)
[2020-07-14 01:03] VITALS: BP 139/71
[2020-07-14 06:41] VITALS: BP 134/87
[2020-07-14 07:28] LABS: BASOPHILS % (AUTO) 1 % (0-1); EOSINOPHILS % (AUTO) 1 % (1-7); LYMPHOCYTES % (AUTO) 28 % (22-44); MEAN CORPUSCULAR HGB CONC 34.7 g/dL (32.4-35.8); MEAN PLATELET VOLUME 8.9 fL (7.4-10.4); MONOCYTES % (AUTO) 10 % (2-9); NEUTROPHILS % (AUTO) 60 % (42-75); PLATELET COUNT 253 x10^3/uL (130-400); RED BLOOD COUNT 4.52 x10^6/uL (3.82-5.3)
[2020-07-14 07:41] LABS: ANION GAP 7 mmol/L (5-15); CALCIUM 8.9 mg/dL (8.5-10.1); CHLORIDE 105 mmol/L (98-107); CREATININE 0.53 mg/dL (0.55-1.02)
[2020-07-14 07:46] LABS: MD NO
[2020-07-14] MEDS: LOSARTAN 50MG TABLET PO SCH (08:37)
[2020-07-14] MEDS: AMLODIPINE 10 MG TAB PO SCH (08:38)
[2020-07-14] MEDS: BACLOFEN 10 MG TABLET PO SCH ×3 (08:38→20:17)
[2020-07-14] MEDS: FUROSEMIDE 20 MG TABLET PO SCH (08:38)
[2020-07-14] MEDS: OXYBUTYNIN CHLORIDE 5 MG TABLET PO SCH (08:38)
[2020-07-14] MEDS: PAROXETINE 10 MG TABLET PO SCH (08:38)
[2020-07-14] MEDS: FERROUS SULFATE 325 MG TABLET PO SCH ×2 (08:38→20:16)
[2020-07-14] MEDS: CALCIUM CARBONATE 500 MG TAB.CHEW PO SCH ×2 (08:38→20:16)
[2020-07-14] MEDS ORDERED: FUROSEMIDE 20 MG/2 ML IV ONE (09:00)
[2020-07-14] MEDS: BUDESONIDE 0.5 MG/2 ML INHA INH SCH ×2 (09:30→19:00)
[2020-07-14] MEDS: MAALOX/HYOSCYAMINE/LIDOCAINE 45 ML BTL PO PRN ×2 (10:17→18:24)
[2020-07-14 14:33] VITALS: BP 116/61
[2020-07-14] MEDS ORDERED: NICOTINE 14MG/24 HR PATCH.TD24 TD SCH (16:00)
[2020-07-14 19:10] VITALS: BP 161/81
[2020-07-14] MEDS: LOVASTATIN 20 MG TABLET PO SCH (20:16)
[2020-07-14] MEDS: CEFTRIAXONE 2 GM in DEXTROSE 5% 50 ML IVPB SCH (22:20)
[2020-07-15] MEDS: ENOXAPARIN 40 MG/0.4 ML SQ SCH (00:04)
[2020-07-15 01:05] VITALS: BP 121/57
[2020-07-15 07:01] VITALS: BP 121/60
[2020-07-15] MEDS: CALCIUM CARBONATE 500 MG TAB.CHEW PO SCH (08:21)
[2020-07-15] MEDS: AMLODIPINE 10 MG TAB PO SCH (08:22)
[2020-07-15] MEDS: FERROUS SULFATE 325 MG TABLET PO SCH (08:22)
[2020-07-15] MEDS: BACLOFEN 10 MG TABLET PO SCH (08:23)
[2020-07-15] MEDS: FUROSEMIDE 20 MG TABLET PO SCH (08:23)
[2020-07-15] MEDS: PAROXETINE 10 MG TABLET PO SCH (08:23)
[2020-07-15] MEDS: OXYBUTYNIN CHLORIDE 5 MG TABLET PO SCH (08:23)
[2020-07-15] MEDS: LOSARTAN 50MG TABLET PO SCH (08:23)
[2020-07-15] MEDS: BUDESONIDE 0.5 MG/2 ML INHA INH SCH (10:30)
[2020-07-15] MEDS: MAALOX/HYOSCYAMINE/LIDOCAINE 45 ML BTL PO PRN (10:55)
[2020-07-15 11:34] VITALS: BP 108/67
[2020-07-15] MEDS ORDERED: OMEP-110 PO (12:44)
[2020-07-15] MEDS ORDERED: SULF1TAB24 PO (12:49)
== END 2020-07-15 15:10 | disposition home health service (06) | DRG 689 ==
LOC: ED 20:12 → EDIP 23:28 → 3N 23:56 → 4EST 07-13 03:27 → DCLOUNGE 07-15 14:56
PROVIDERS: ADMIT Family Medicine; ATTEND Hospitalist
PROC: 0T9B70Z Drainage of Bladder with Drainage Device, Via Natural or Artificial Opening (ICD-10-PCS; principal; 2020-07-12)
DX: N39.0 Urinary tract infection, site not specified (principal); G93.41 Metabolic encephalopathy; F17.213 Nicotine dependence, cigarettes, with withdrawal; Z88.5 Allergy status to narcotic agent; J44.9 Chronic obstructive pulmonary disease, unspecified; M81.0 Age-related osteoporosis without current pathological fracture; D64.9 Anemia, unspecified; E78.5 Hyperlipidemia, unspecified; F32.9 Major depressive disorder, single episode, unspecified; I10 Essential (primary) hypertension; Z79.899 Other long term (current) drug therapy
CPT/HCPCS: 36415; 70450; 70553; 71045; 80048; 80053; 80307; 81001; 83605; 83880; 84443; 84484; 85025; 87040; 87077; 87086; 87186; 93005; 94640; 96374; G0378; J0696; J1650; J7626; A9575; J1940